=== PATIENT | female | born 1940 | race Two or more races ===

== ENCOUNTER 2017-10-27 07:56 | Outpatient (CLI) | payer OTHER | END 2017-10-27 08:00 | disposition home or self-care (01) | LOC: RAD 07:56 | DX: M25.571 Pain in right ankle and joints of right foot (principal); M51.37 Other intervertebral disc degeneration, lumbosacral region ==

== ENCOUNTER 2018-03-08 07:28 | Outpatient (CLI) | payer OTHER | END 2018-03-08 15:46 | disposition home or self-care (01) | LOC: MAMO-SONO 07:28 | DX: Z12.31 Encounter for screening mammogram for malignant neoplasm of breast (principal); Z87.898 Personal history of other specified conditions; N64.4 Mastodynia; E03.8 Other specified hypothyroidism; E04.8 Other specified nontoxic goiter ==

== ENCOUNTER 2018-03-17 12:16 | Outpatient (CLI) | payer OTHER | END 2018-03-17 13:00 | disposition home or self-care (01) | LOC: NUCLEAR 12:16 | DX: M81.0 Age-related osteoporosis without current pathological fracture (principal) ==

== ENCOUNTER 2018-03-28 07:44 | Outpatient (CLI) | payer OTHER | END 2018-03-28 07:52 | disposition home or self-care (01) | LOC: SONOGRAMA 07:44 | DX: E04.1 Nontoxic single thyroid nodule (principal) ==

== ENCOUNTER → 2018-12-01 | Outpatient (CLI) | payer OTHER | END | disposition home or self-care (01) | LOC: SONOGRAMA 08:22 | DX: E04.1 Nontoxic single thyroid nodule (principal) ==

== ENCOUNTER 2018-12-22 09:23 | Outpatient (CLI) | payer OTHER | END 2018-12-22 09:32 | disposition home or self-care (01) | LOC: RAD 09:23 | DX: M25.561 Pain in right knee (principal) ==

== ENCOUNTER 2019-03-27 07:28 | Outpatient (CLI) | payer OTHER | END 2019-03-27 07:33 | disposition home or self-care (01) | LOC: LAB 07:28 | DX: M85.88 Other specified disorders of bone density and structure, other site (principal); D64.89 Other specified anemias; Z76.89 Persons encountering health services in other specified circumstances; E55.9 Vitamin D deficiency, unspecified; E21.2 Other hyperparathyroidism; E88.89 Other specified metabolic disorders; M81.8 Other osteoporosis without current pathological fracture; E56.1 Deficiency of vitamin K; D68.8 Other specified coagulation defects; Z22.322 Carrier or suspected carrier of Methicillin resistant Staphylococcus aureus; N39.0 Urinary tract infection, site not specified; I49.8 Other specified cardiac arrhythmias ==

== ENCOUNTER 2019-03-27 11:00 | Inpatient (IN) | payer OTHER ==
[~2019-03-27] VITALS: Ht 160 cm; Wt 76.2 kg
[2019-04-06] MEDS ORDERED: SYNTHROID100 MCG PO (10:11)
[2019-04-06] MEDS ORDERED: COZAAR50 MG PO (10:11)
[2019-04-06] MEDS ORDERED: ZOCOR20 MG PO (10:11)
[2019-04-06] MEDS ORDERED: CALTRATE 600 +1 EACH PO (10:12)
[2019-04-06] MEDS ORDERED: MULTIPLE VITAM1 EACH PO (10:12)
[2019-04-11] MEDS ORDERED: B COMPLEX1 EACH (08:51)
[2019-04-11] MEDS ORDERED: VITAMIN C100 MG (08:51)
[2019-04-11] MEDS ORDERED: VITAMIN B-121000 MC4 PO (08:52)
[2019-04-11] MEDS ORDERED: XARELTO10 M1 PO (08:52)
[2019-04-11] MEDS ORDERED: ALLER-TEC10 MG PO (08:53)
== END 2019-04-14 12:08 | disposition home health service (06) | DRG 470 ==
LOC: SURG 04-11 07:00 → O/R 04-11 07:29 → SURH 04-11 07:29 → SURG 04-11 10:15 → SURH 04-11 16:54
PROVIDERS: ADMIT Orthopaedic Surgery
PROC: 0SRC0J9 Replacement of Right Knee Joint with Synthetic Substitute, Cemented, Open Approach (ICD-10-PCS; principal; 2019-04-11 07:00)
DX: M17.11 Unilateral primary osteoarthritis, right knee (principal); E03.8 Other specified hypothyroidism; I10 Essential (primary) hypertension

== ENCOUNTER → 2019-04-17 | Outpatient (CLI) | payer OTHER ==
[~2019-04-17] MED LIST: ALLER-TEC10 MG PO; B COMPLEX1 EACH; CALTRATE 600 +1 EACH PO; COZAAR50 MG PO; MULTIPLE VITAM1 EACH PO; SYNTHROID100 MCG PO; VITAMIN B-121000 MC4 PO; VITAMIN C100 MG; XARELTO10 M1 PO; ZOCOR20 MG PO
== END | disposition home or self-care (01) ==
LOC: NUCLEAR 15:03
DX: L03.125 Acute lymphangitis of right lower limb (principal); I87.2 Venous insufficiency (chronic) (peripheral)

== ENCOUNTER 2019-09-06 12:27 | Outpatient (CLI) | payer OTHER | END 2019-09-06 12:43 | disposition home or self-care (01) | LOC: RAD 12:27 | PROVIDERS: ATTEND Orthopaedic Surgery | DX: Z96.651 Presence of right artificial knee joint (principal) ==

== ENCOUNTER 2020-04-03 09:26 | Outpatient (CLI) | payer OTHER | END 2020-04-03 09:34 | disposition home or self-care (01) | LOC: RAD 09:26 | PROVIDERS: ATTEND Orthopaedic Surgery | DX: T84.89XA Other specified complication of internal orthopedic prosthetic devices, implants and grafts, initial encounter (principal); Z96.651 Presence of right artificial knee joint ==

== ENCOUNTER 2023-01-27 08:09 | Outpatient (CLI) | payer OTHER | END 2023-01-27 08:14 | disposition home or self-care (01) | LOC: RX STUDY 08:09 | PROVIDERS: ATTEND Internal Medicine Gastroenterology | DX: R13.10 Dysphagia, unspecified (principal) ==

== ENCOUNTER 2023-02-04 08:53 | Outpatient (CLI) | payer OTHER | END 2023-02-04 08:55 | disposition home or self-care (01) | LOC: SONOGRAMA 08:53 | PROVIDERS: ATTEND Pathology Anatomic Pathology & Clinical Pathology | DX: E04.2 Nontoxic multinodular goiter (principal); D44.0 Neoplasm of uncertain behavior of thyroid gland ==